=== PATIENT | male | born 1995 | race Caucasian/White ===

== ENCOUNTER 2020-01-03 04:24 | Emergency (ER) | payer OTHER ==
[2020-01-03] MEDS: Sodium Chloride 0.9% 1,000 ML IV ONE ×2 (04:54→07:18)
[2020-01-03] MEDS: Ketorolac 15 MG/ML SDV IVPUSH ONE (04:55)
[2020-01-03] MEDS: Sodium Chloride 0.9% 10 ML Syringe FLUSH PRN (04:59)
--- NOTE | 2020-01-03 05:06 | EDM.PDOC ---
ED HPI GENERAL MEDICAL PROBLEM - General Chief Complaint: Back Pain or Injury Stated Complaint: back pain Time Seen by Provider: 01/03/20 04:29 Source of Information: Reports: Patient History Limitations: Reports: No Limitations - History of Present Illness INITIAL COMMENTS - FREE TEXT/NARRATIVE: Pt. presents to ER with complaints of low back pain. Pt. states that the onset of the discomfort was quite acute before he went to bed tonight. Denies any excessive lifting or history of chronic back pain. No numbness/tingling in his lower extremities. Denies any dysuria. He states that the discomfort radiates into his sides and into his abdomen. Denies any fever or chills. He states that his urine has been normal. No discoloration, urgency, or frequency. Denies any dysuria, nausea, or vomiting. Pt. has a history of kidney stones in his family but not personally. No known history of auto-immune disease that patient of family are aware of. Denies any history of IV or street drug use. Onset Date: 01/02/20 Location: Reports: Back Quality: Reports: Ache Bilateral Lower Back Pain Score (Numeric/FACES): 7 - Related Data Allergies Allergy/AdvReac Type Severity Reaction Status Date / Time No Known Allergies Allergy Verified 01/03/20 04:32 Home Meds: Home Meds . [No Known Home Meds] 01/03/20 [History] Past Medical History - Past Health History Medical/Surgical History: Denies Medical/Surgical History Social & Family History - Tobacco Use Smoking Status *Q: Never Smoker ED ROS GENERAL - Review of Systems Review Of Systems: See Below Constitutional: Reports: No Symptoms HEENT: Reports: No Symptoms Respiratory: Reports: No Symptoms Cardiovascular: Reports: No Symptoms Endocrine: Reports: No Symptoms GI/Abdominal: Reports: No Symptoms. Denies: Black Stool, Bloody Stool, Distension : Reports: Flank Pain Musculoskeletal: Reports: Back Pain Skin: Reports: No Symptoms Neurological: Reports: No Symptoms Psychiatric: Reports: No Symptoms Hematologic/Lymphatic: Reports: No Symptoms Immunologic: Reports: No Symptoms ED EXAM, GENERAL - Physical Exam Exam: See Below Exam Limited By: No Limitations General Appearance: Alert, WD/WN, No Apparent Distress GI/Abdominal: Soft, Non-Tender, No Organomegaly, No Distention, No Mass (Male) Exam: Deferred Rectal (Males) Exam: Deferred Back Exam: Normal Inspection, Full Range of Motion Extremities: Normal Inspection, Normal Range of Motion, Non-Tender, No Pedal Edema, Normal Capillary Refill Course - Vital Signs Last Recorded V/S: Last Vital Signs Temp 37.3 C 01/03/20 05:48 Pulse 82 01/03/20 05:48 Resp 16 01/03/20 05:48 BP 142/85 H 01/03/20 05:48 Pulse Ox 99 01/03/20 05:48 - Orders/Labs/Meds Orders: Active Orders 24 hr Category Date Time Status Abdomen Pelvis w Cont [CT] Stat Exams 01/03/20 05:09 Ordered Sodium Chloride 0.9% [Normal Saline] 1,000 ml Med 01/03/20 07:06 Ordered IV .BOLUS Sodium Chloride 0.9% [Saline Flush] Med 01/03/20 04:39 Active 10 ml FLUSH ASDIRECTED PRN Peripheral IV Insertion Adult [OM.PC] Routine Oth 01/03/20 04:39 Ordered Medication Orders Sodium Chloride (Normal Saline) 1,000 mls @ 125 mls/hr IV .BOLUS ONE Stop: 01/03/20 15:05 Sodium Chloride (Saline Flush) 10 ml FLUSH ASDIRECTED PRN PRN Reason: Keep Vein Open Last Admin: 01/03/20 04:59 Dose: 10 ml Labs: Laboratory Tests 01/03/20 01/03/20 01/03/20 Range/Units 04:39 04:55 04:55 WBC 15.4 H (4.0-10.0) x10^3/uL RBC 5.22 (4.5-6.0) x10^6/uL Hgb 15.3 (14.0-18.0) g/dL Hct 44.6 (40.0-52.0) % MCV 85.4 (78.0-93.0) fL MCH 29.3 (26.0-32.0) pg MCHC 34.3 (32.0-36.0) g/dL RDW Coeff of Stoney 11.8 (10.0-15.0) % Plt Count 176 (130-400) x10^3/uL Neut % (Auto) 71.7 (50.0-80.0) % Lymph % (Auto) 17.9 L (25.0-50.0) % Routt % (Auto) 9.1 (2.0-11.0) % Eos % (Auto) 1.1 (0.0-4.0) % Baso % (Auto) 0.2 (0.2-1.2) % Sodium 143 (136-145) mmol/L Potassium 3.6 (3.5-5.1) mmol/L Chloride 103 (98-107) mmol/L Carbon Dioxide 27 (21-32) mmol/L Anion Gap 16.6 (10-20) mmol/L BUN 21 H (7-18) mg/dL Creatinine 1.6 H (0.70-1.30) mg/dL Est Cr Clr Drug Dosing TNP Estimated GFR (MDRD) 54 Glucose 97 (74-106) mg/dL Calcium 9.4 (8.5-10.1) mg/dL Corrected Calcium 9.24 (8.5-10.1) mg/dL Total Bilirubin 0.5 (0.2-1.0) mg/dL AST 29 (15-37) U/L ALT 30 (16-63) U/L Alkaline Phosphatase 65 (46-116) U/L C-Reactive Protein < 0.2 (<=0.9) mg/dL Total Protein 7.8 (6.4-8.2) g/dL Albumin 4.2 (3.4-5.0) g/dL Globulin 3.6 Albumin/Globulin Ratio 1.17 Urine Color Yellow (YELLOW) POC Urine Appearance Clear (CLEAR) POC Urine pH 6.0 (5.0-8.0) Ur Specific Hubbard 1.015 (1.005-1.030) POC Urine Protein 30 H (NEGATIVE) POC Ur Glucose (UA) Negative (NEGATIVE) POC Urine Ketones Negative (NEGATIVE) POC Ur Occult Blood Moderate H (NEGATIVE) POC Urine Nitrite Negative (NEGATIVE) POC Urine Bilirubin Negative (NEGATIVE) POC Urine Urobilinogen 0.2 (0.2) POC U Leukocyte Esteras Negative (NEGATIVE) Meds: Medications Generic Name Dose Route Start Last Admin Trade Name Freq PRN Reason Stop Dose Admin Sodium Chloride 1,000 mls @ 125 mls/hr 01/03/20 07:06 Normal Saline IV 01/03/20 15:05 .BOLUS ONE Sodium Chloride 10 ml 01/03/20 04:39 01/03/20 04:59 Saline Flush FLUSH 10 ml ASDIRECTED PRN Administration Keep Vein Open Discontinued Medications Generic Name Dose Route Start Last Admin Trade Name Tamica PRN Reason Stop Dose Admin Ceftriaxone Sodium 2 gm 01/03/20 07:00 Rocephin IVPUSH 01/03/20 07:01 STAT ONE Hydromorphone HCl 1 mg 01/03/20 06:42 01/03/20 06:49 Dilaudid IVPUSH 01/03/20 06:43 1 mg ONETIME ONE Administration Sodium Chloride 1,000 mls @ 1,000 mls/hr 01/03/20 04:40 01/03/20 04:54 Normal Saline IV 01/03/20 05:39 1,000 mls/hr .BOLUS ONE Administration Iopamidol 100 ml 01/03/20 06:08 01/03/20 06:22 Isovue-300 (61%) IVPUSH 01/03/20 06:09 100 ml ONETIME ONE Administration Ketorolac Tromethamine 15 mg 01/03/20 04:41 01/03/20 04:55 Toradol IVPUSH 01/03/20 04:42 15 mg ONETIME ONE Administration Ondansetron HCl 4 mg 01/03/20 05:47 01/03/20 05:55 Zofran IVPUSH 01/03/20 05:48 4 mg ONETIME ONE Administration - Radiology Interpretation Free Text/Narrative:: Non-specific inflammation of kidneys of unknown etiology. No stones. No obstruction. Departure - Departure Time of Disposition: 07:09 Disposition: DC/Tfer to Acute Hospital 02 Clinical Impression: Nephritis, JANEL (acute kidney injury) - Discharge Information Forms: ED Department Discharge Sepsis Event Note - Evaluation Sepsis Screening Result: No Definite Risk - Focused Exam Vital Signs: Vital Signs Temp Temp Pulse Resp BP BP Pulse Ox 01/03/20 05:48 37.3 C 82 16 142/85 H 99 01/03/20 04:29 36.3 C 83 18 134/95 H 99 Date Exam was Performed: 01/03/20 Time Exam was Performed: 07:07 - Problem List Review Problem List Initiated/Reviewed/Updated: Yes - My Orders Last 24 Hours: My Active Orders 01/03/20 04:39 Sodium Chloride 0.9% [Saline Flush] 10 ml FLUSH ASDIRECTED PRN Peripheral IV Insertion Adult [OM.PC] Routine 01/03/20 05:09 Abdomen Pelvis w Cont [CT] Stat 01/03/20 07:06 Sodium Chloride 0.9% [Normal Saline] 1,000 ml IV .BOLUS - Assessment/Plan Last 24 Hours: My Active Orders 01/03/20 04:39 Sodium Chloride 0.9% [Saline Flush] 10 ml FLUSH ASDIRECTED PRN Peripheral IV Insertion Adult [OM.PC] Routine 01/03/20 05:09 Abdomen Pelvis w Cont [CT] Stat 01/03/20 07:06 Sodium Chloride 0.9% [Normal Saline] 1,000 ml IV .BOLUS Plan: Pt. will be transferred to [facility] in [place]. He will be transported via [facility] ground ambulance. He was given 1 liter or NS in ER. He will be started on NS at 125ml/hr. He can have IV dilaudid or morphine during transport as needed. Dr. Clements accepts the patient in transfer. He was started on IV rocephin 2gm IV prior to departure.
[2020-01-03 05:42] LABS: ANION GAP 16.6 mmol/L (10-20); CHLORIDE,CL 103 mmol/L (98-107); SODIUM,NA 143 mmol/L (136-145)
[2020-01-03] MEDS: Ondansetron 4 MG/2 ML SDV IVPUSH ONE (05:55)
[2020-01-03] MEDS: Iopamidol 612 MG/ML 100 ML Bottle IVPUSH ONE (06:22)
[2020-01-03] MEDS: HYDROmorphone 1 MG/ML Syringe IVPUSH ONE (06:49)
[2020-01-03] MEDS: cefTRIAXone 2 GM Vial IVPUSH ONE (07:18)
--- NOTE | 2020-01-03 08:09 | CT ---
[id number] CT/CT Abdomen Pelvis W IV EXAM: CT Abdomen Pelvis W IV CLINICAL DATA: LOW BACK PAIN. ELEVATED WHITE COUNT. COMPARISON STUDY: None. FINDINGS: Lung bases are clear. Liver, spleen, gallbladder, pancreas, and adrenal glands are unremarkable. There is a small amount of symmetric perirenal fluid, nonspecific. No renal calculi are identified. No suspicious renal lesions are identified. Normal enhancement pattern of the kidneys bilaterally. No bowel obstruction or inflammation. The appendix is visualized and appears normal. No lymphadenopathy, or pneumoperitoneum. No fluid collection. The urinary bladder is normal in appearance. No bladder wall thickening. Scattered changes of spondylosis the spine. No fracture or osseous lesion. IMPRESSION: 1. Nonspecific small amount of symmetric perirenal fluid. The kidneys and bladder are otherwise unremarkable in appearance. No definite findings to support acute cystitis/pyelonephritis. Given the patient's symptoms and CT findings, findings are suggestive of inflammatory nephritis. Correlation with urinalysis is recommended. Mihir Mckenzie DO 01/03/20 0807 Thank you for allowing us to participate in the care of your patient.
== END 2020-01-03 07:48 | disposition short-term general hospital (02) ==
LOC: VM.ED 04:24
DX: N05.9 Unspecified nephritic syndrome with unspecified morphologic changes (principal); N17.9 Acute kidney failure, unspecified
CPT/HCPCS: 74177; 80053; 81002; 85025; 86140; 96374; 96375; 99285-25; J0696; J1170; J1885; J2405; J7030; Q9967